=== PATIENT | female | born 1990 | race Caucasian/White ===

== ENCOUNTER 2022-02-20 08:01 | Outpatient (CLI) | payer BC | END 2022-02-20 08:02 | disposition home or self-care (01) | LOC: CSHLAB 08:01 | PROVIDERS: ATTEND Obstetrics & Gynecology | DX: Z20.822 Contact with and (suspected) exposure to COVID-19 (principal) | CPT/HCPCS: 87811 ==

== ENCOUNTER 2022-02-25 18:00 | Inpatient (IN) | payer BC ==
[2022-02-26] MEDS ORDERED: Bupivacaine 0.25% HCL 30 ML VIAL ONE (08:00)
[2022-02-26] MEDS ORDERED: NS w/ Oxytocin 30 units 500 ML ONE (08:01)
[2022-02-26] MEDS ORDERED: Penicillin G Potassium 5 MILL.UNITS VIAL ONE (08:01)
[2022-02-26] MEDS ORDERED: Fentanyl 2 mcg/Bup 0.1% Cadd 100 ML ONE (11:22)
[2022-02-26] MEDS ORDERED: Butorphanol Tartrate 1 MG/ML VIAL SLOW IVP PRN (11:27)
[2022-02-26] MEDS ORDERED: Lidocaine 1% (PF) 30 ML VIAL SC PRN (11:27)
[2022-02-26] MEDS ORDERED: Promethazine HCl 25 MG/ML VIAL IM PRN ×2 (11:27→11:54)
[2022-02-26] MEDS ORDERED: Ondansetron PF 4 MG/2 ML Vial IVP PRN ×3 (11:27→15:17)
[2022-02-26] MEDS ORDERED: Diphenoxylate HCl/Atropine Tablet PO PRN ×2 (11:27)
[2022-02-26] MEDS ORDERED: Docusate 100 MG CAP PO PRN (11:27)
[2022-02-26] MEDS ORDERED: NS w/ Oxytocin 30 units 500 ML IV SCH ×3 (11:27→15:30)
[2022-02-26] MEDS ORDERED: Acetaminophen 500 MG TAB PO PRN (11:27)
[2022-02-26] MEDS ORDERED: Misoprostol 200 MCG TAB PR PRN (11:27)
[2022-02-26] MEDS ORDERED: HYDROcodone/Acetaminophen 5/325 mg Tablet PO PRN ×4 (11:27→19:02)
[2022-02-26] MEDS ORDERED: Penicillin G Potassium 5 MILL.UNITS in Sodium Chloride 0.9% 100 ML IVPB SCH (11:27)
[2022-02-26] MEDS ORDERED: hydrALAZINE 20 MG/ML VIAL SLOW IVP PRN ×2 (11:27→15:17)
[2022-02-26] MEDS ORDERED: Lactated Ringer's 1,000 ML IV SCH (11:27)
[2022-02-26] MEDS ORDERED: Ibuprofen 800 MG TAB PO PRN (11:27)
[2022-02-26 11:44] VITALS: BMI 32.5
[2022-02-26] MEDS ORDERED: diphenhydrAMINE 50 MG/ML VIAL IVP PRN (11:54)
[2022-02-26] MEDS ORDERED: Moisturizing Cream (Eucerin) 113 GM JAR TOP PRN (11:54)
[2022-02-26] MEDS ORDERED: Naloxone HCl 0.4 mg/ml Vial IVP PRN ×2 (11:54)
[2022-02-26] MEDS ORDERED: ePHEDrine Sulfate 50 MG/10 ML VIAL SLOW IVP PRN (11:54)
[2022-02-26] MEDS ORDERED: Acetaminophen 325 MG TAB PO PRN (11:54)
[2022-02-26] MEDS ORDERED: Fentanyl 2 mcg/Bupivacaine 0.1% Cassette 100 ML EPIDURAL SCH (12:00)
[2022-02-26] MEDS ORDERED: Communication Order-Pharmacy FS SCH (12:00)
[2022-02-26] MEDS ORDERED: Lactated Ringer's 500 ML IV PRN (12:06)
[2022-02-26 12:24] LABS: Hemoglobin 9.9 g/dL (12.0-15.5); Mean Corpuscular HGB CONC 31.9 g/dL (32.0-36.0); Mean Corpuscular Hemoglobin 25.1 pg (27.0-33.0); Mean Corpuscular Volume 78.5 fl (81.6-98.3); Platelet Count 206 10x3/uL (150-450); RBC Distribution Width 15.4 % (11.5-14.5); Red Blood Cell (RBC) Count 3.95 10x6/uL (3.90-5.03); White Blood Cell (WBC) Count 9.4 10x3/uL (3.5-10.5)
[2022-02-26 12:49] LABS: Syphilis Antibody Nonreactive (Nonreactive); Syphilis Antibody Index 0.06 S/CO (<1.00 Non-Reactive)
[2022-02-26 13:20] LABS: HIV (1/2) Antibody/Antigen Non-Reactive (NonReactive); HIV 1/2 INDEX 0.11 S/CO (<1.00); Hep B Surf Ag Non-Reactive S/CO (NonReactive)
[2022-02-26 13:23] LABS: HBSAg Index 0.17 S/CO (0-0.99)
[2022-02-26] MEDS ORDERED: Bisacodyl 10 MG SUPP PR PRN (15:17)
[2022-02-26] MEDS ORDERED: diphenhydrAMINE 25 MG CAP PO PRN (15:17)
[2022-02-26] MEDS ORDERED: Misoprostol 200 MCG TAB VAG PRN (15:17)
[2022-02-26] MEDS ORDERED: Boostrix 0.5 ML (Tdap) VIAL IM ONE (15:17)
[2022-02-26] MEDS ORDERED: Preparation H Ointment 28 GM TUBE PR PRN (15:17)
[2022-02-26] MEDS ORDERED: Lanolin Ointment 7 GM TUBE TOP PRN (15:17)
[2022-02-26] MEDS ORDERED: Milk Of Magnesia 30 ML UDCUP PO PRN (15:17)
[2022-02-26] MEDS ORDERED: Benzocaine-Menthol 82.5 ML CAN TOP PRN (15:17)
[2022-02-26] MEDS ORDERED: Penicillin G 2.5 MILL.units 2.5 MILL.UNITS in Premix Bag 1 BAG IVPB SCH (15:30)
[2022-02-26] MEDS: Ibuprofen 800 MG TAB PO SCH (16:42)
[2022-02-26] MEDS ORDERED: Zolpidem Tartrate 5 MG TAB PO PRN (19:02)
[2022-02-26] MEDS: Ferrous Sulfate 325 MG TAB PO SCH (21:15)
[2022-02-26] MEDS: Docusate 100 MG CAP PO SCH (21:15)
[2022-02-26] MEDS: Enoxaparin Sodium 30 MG/0.3 ML SYRINGE SC SCH (21:16)
[2022-02-27] MEDS: Ibuprofen 800 MG TAB PO SCH ×3 (00:08→16:38)
[2022-02-27 05:43] LABS: Hemoglobin 7.9 g/dL (12.0-15.5); Mean Corpuscular HGB CONC 33.3 g/dL (32.0-36.0); Mean Corpuscular Hemoglobin 25.6 pg (27.0-33.0); Mean Corpuscular Volume 76.7 fl (81.6-98.3); Mean Platelet Volume 9.9 fl (7.4-10.4); Platelet Count 165 10x3/uL (150-450); RBC Distribution Width 15.7 % (11.5-14.5); Red Blood Cell (RBC) Count 3.09 10x6/uL (3.90-5.03); White Blood Cell (WBC) Count 10.9 10x3/uL (3.5-10.5)
[2022-02-27] MEDS: Ferrous Sulfate 325 MG TAB PO SCH ×2 (08:32→16:37)
[2022-02-27] MEDS: Prenatal Vitamin 1 TAB PO SCH (08:32)
[2022-02-27] MEDS: Docusate 100 MG CAP PO SCH ×2 (08:32→20:53)
[2022-02-27] MEDS: Enoxaparin Sodium 30 MG/0.3 ML SYRINGE SC SCH (09:08)
[2022-02-28] MEDS: Ibuprofen 800 MG TAB PO SCH ×2 (00:21→08:48)
[2022-02-28 07:55] VITALS: BP 128/60; TEMP 98.4
[2022-02-28] MEDS: Ferrous Sulfate 325 MG TAB PO SCH (08:48)
[2022-02-28] MEDS: Docusate 100 MG CAP PO SCH (08:48)
[2022-02-28] MEDS: Prenatal Vitamin 1 TAB PO SCH (08:48)
[2022-02-28] MEDS ORDERED: Enoxaparin Sodium 30 MG/0.3 ML SYRINGE SC SCH (09:00)
== END 2022-02-28 12:50 | disposition home or self-care (01) | DRG 806 ==
LOC: CSHLD 02-26 06:27 → CSHPP 02-26 18:25
PROVIDERS: ADMIT Obstetrics & Gynecology; ATTEND Obstetrics & Gynecology
PROC: 10E0XZZ Delivery of Products of Conception, External Approach (ICD-10-PCS; principal; 2022-02-26)
PROC: 0KQM0ZZ Repair Perineum Muscle, Open Approach (ICD-10-PCS; 2022-02-26)
PROC: 10907ZC Drainage of Amniotic Fluid, Therapeutic from Products of Conception, Via Natural or Artificial Opening (ICD-10-PCS; 2022-02-26)
DX: O99.12 Other diseases of the blood and blood-forming organs and certain disorders involving the immune mechanism complicating childbirth (principal); D68.59 Other primary thrombophilia; Z37.0 Single live birth; Z3A.38 38 weeks gestation of pregnancy; O70.1 Second degree perineal laceration during delivery; Z86.16 Personal history of COVID-19; O99.824 Streptococcus B carrier state complicating childbirth; E03.9 Hypothyroidism, unspecified; F41.9 Anxiety disorder, unspecified; O99.284 Endocrine, nutritional and metabolic diseases complicating childbirth; Z79.82 Long term (current) use of aspirin; Z79.899 Other long term (current) drug therapy
CPT/HCPCS: 36415; 51702; 85027; 86780; 86850; 86900; 86901; 87340; 87389; J1650; S0020